=== PATIENT | female | born 1950 | race Caucasian/White ===

== ENCOUNTER 2018-04-24 11:46 | Emergency (ER) | payer BC ==
[2018-04-24 12:15] VITALS: TEMP 98.6; BMI 21.1
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
[2018-04-24 13:36] LABS: BASO % 1.2 % (0-2.0); EOS % 0.2 % (0-4.5); HEMATOCRIT 40.9 % (32.4-45.2); LYMPH % 29.6 % (8-40); MCH 30.5 pg (25.7-33.7); MCHC 31.8 g/dl (32.0-36.0); MEAN CELL VOLUME 95.8 fl (80-96); MEAN PLT VOLUME 10.3 fl (7.5-11.1); MONO % 6.1 % (3.8-10.2); NEUT % 62.9 % (42.8-82.8); PLATELET COUNT 213 K/MM3 (134-434); RBC 4.27 M/mm3 (3.60-5.2); RDW 12.6 % (11.6-15.6); WHITE BLOOD COUNT 7.1 K/mm3 (4.0-10.0)
[2018-04-24 14:28] LABS: ALBUMIN 3.8 g/dl (3.4-5.0); ALK PHOS 81 U/L (45-117); ANION GAP 7 MMOL/L (8-16); BILIRUBIN,TOTAL 0.3 mg/dL (0.2-1); BLOOD UREA NITROGEN 18 mg/dL (7-18); CALCIUM 8.9 mg/dL (8.5-10.1); CHLORIDE 106 mmol/L (98-107); CO2 27 mmol/L (21-32); CREATININE 0.7 mg/dL (0.55-1.3); GLUCOSE,RANDOM 86 mg/dL (74-106); SGOT/AST 26 U/L (15-37); SGPT/ALT 25 U/L (13-61); SODIUM 140 mmol/L (136-145); TOT PROT 7.2 g/dl (6.4-8.2)
--- NOTE | 2018-04-24 15:05 | EKG ---
Test Reason : Blood Pressure : / mmHG Vent. Rate : 060 BPM Atrial Rate : 060 BPM P-R Int : 144 ms QRS Dur : 086 ms QT Int : 452 ms P-R-T Axes : 055 -19 033 degrees QTc Int : 452 ms NORMAL SINUS RHYTHM POSSIBLE LEFT ATRIAL ENLARGEMENT BORDERLINE ECG NO PREVIOUS ECGS AVAILABLE Confirmed by DIANNE BOUDREAUX MD ([id number]) on 04/24/2018 3:05:30 PM Referred By: Confirmed By:DIANNE BOUDREAUX MD
[2018-04-24 15:48] VITALS: BP 139/88; PULSE 62
== END 2018-04-24 15:50 | disposition home or self-care (01) ==
LOC: JER 11:46
DX: R07.9 Chest pain, unspecified (principal); R42 Dizziness and giddiness; R25.1 Tremor, unspecified
CPT/HCPCS: 36415; 80053; 84484; 85025; 93005; 93010; 99282-25